=== PATIENT | male | born 1955 | race Caucasian/White ===

== ENCOUNTER 2016-12-20 20:43 | Emergency (ER) | payer OTHER ==
[~2016-12-20] VITALS: Ht 172.7 cm; Wt 112.6 kg
[~2016-12-20 20:43] MED LIST: ADVAIR 250/501 DISK IH; ALLOPURINOL300 MG PO; ALPRAZOLAM0.25 M2 PO; AMOX TR-K CLV1 EAC4 PO; ASPIR-LOW81 MG PO; ASPIRIN E.C.81 M1 PO; ASPIRIN81 M2 PO; ATROVENT 00.5 MG/2.5 IH; Advair 250/50 Diskus IH; CARDIZEM CD,CA180 MG PO; CARDIZEM CD360 MG PO; CARDIZEM LA360 MG PO; CARDIZEM120 MG PO; CLOPIDOGREL75 MG PO; COMBIVENT200 INHALA IH; COUMADIN,JANTOV10 MG PO; COUMADIN,JANTOVE5 MG PO; COUMADIN10 MG PO; COUMADIN5 MG PO; COUMADIN7.5 MG PO; CYANOCOBAL1000 MCG/2 IM; Ceftin PO; Colace PO; DELTASONE10 MG PO; DIGITEK250 MC2 PO; DIGOX250 MCG PO; DOCUSATE SODIU100 MG PO; EC-NAPROSYN375 MG PO; EMS NITROSTAT0.4 M1 SL; ERGOCALCIF50000 UNIT PO; HYDROCODON-ACE1 EAC7 PO; Habitrol,Nicoderm CQ TD; LANOXIN,DIGIT0.25 MG PO; LASIX40 MG PO; LISINOPRIL10 MG PO; LO-DOSE ASPIRIN81 M1 PO; LOVENOX40 MG/0.4 SC; LUMIGAN 0.50 DROP/22 LEFT EYE; MAG-AL PLUS SUS30 ML PO; NAPROXEN375 MG PO; NITROSTAT0.4 MG SL; OMEPRAZOLE40 M1 PO; PEN-VEE K,VEET500 MG PO; PERCOCET 10-321 EACH PO; PERCOCET 10/1 TABLE1 PO; PERCOCET 5/31 TABLET PO; PLAVIX75 MG PO; PRAVASTATIN SOD40 MG PO; PREDNISOLONE PO; PREDNISONE10 M2 PO; PREDNISONE10 MG PO; PRILOSEC40 MG PO; PROAIR HFA8.5 GM IH; PROTONIX40 MG PO; PROVENTIL,2.5 MG/3 M IH; Proventil,Ventolin H IH; ROBAXIN500 MG PO; ROXICODONE5 MG PO; SPIRIVA1 INHALATI IH; ST. JOSEPH ASPI81 MG PO; SYMBICORT60 INHALAT IH; Silvadene,SSD,Therma TP; THEO-24400 MG PO; THEO-DUR,THEOC200 MG PO; THEOPHYLLINE A200 M1 PO; TRAMADOL HCL50 MG PO; TYLENOL 8 HOUR650 MG PO; TYLENOL EXTRA500 MG PO; TYLENOL REGULA325 MG PO; ULTRAM50 MG PO; VENTOLIN HFA18 GM IH; ZESTRIL,PRINIVIL5 MG PO; Zestril,Prinivil PO; Zyloprim PO; predniSONE PO
[2016-12-20 21:37] LABS: HEMATOCRIT 32.8 % (38.0-50.0); MCH 24.9 PG (29.0-34.0); MCHC 29.6 G/DL (30.0-36.0); MCV 84.1 FL (86-99); MEAN PLAT.VOLUME 9.8 uM^3 (9.0-12.4); PLATELET COUNT 224 K/uL (156-360); RBC DIS.WIDTH-CV 17.3 % (11.8-14.6); RBC DIS.WIDTH-SD 52.8 % (39-53); WHITE BLOOD COUNT 12.4 K/uL (4.1-10.2)
[2016-12-20 22:31] LABS: INTER. NORMALIZED RATIO 2.8; PROTHROMBIN TIME 32.6 SEC (10.2-12.9)
[2016-12-20 22:45] VITALS: BP 115/58
== END 2016-12-20 22:48 | disposition home or self-care (01) ==
LOC: EXP 20:43 → EME 20:43 → EXP 22:48
PROVIDERS: Physician Assistant
PROC: 09QKXZZ Repair Nasal Mucosa and Soft Tissue, External Approach (ICD-10-PCS; principal; 2016-12-20)
DX: R04.0 Epistaxis (principal); Z79.01 Long term (current) use of anticoagulants; Z79.82 Long term (current) use of aspirin; J44.9 Chronic obstructive pulmonary disease, unspecified; Z99.81 Dependence on supplemental oxygen; I50.9 Heart failure, unspecified; E78.5 Hyperlipidemia, unspecified; Z95.5 Presence of coronary angioplasty implant and graft; F17.200 Nicotine dependence, unspecified, uncomplicated
CPT/HCPCS: 85027; 85610; 99281; 99284